=== PATIENT | male | born 1995 | race Caucasian/White ===

== ENCOUNTER 2016-02-27 13:46 | Emergency (ER) | payer BC ==
[~2016-02-27] VITALS: Ht 165.1 cm; Wt 57.7 kg
[~2016-02-27 13:46] MED LIST: FEXO1TAB46 PO
[2016-02-27 13:52] VITALS: BP 122/78; PULSE 71; TEMP 37; O2SAT 98; Ht 165.1 cm; Wt 57.7 kg
--- NOTE | 2016-02-27 14:19 | EMERGENCY ROOM VISIT NOTE ---
ED Visit Note First contact with patient: 13:58 CHIEF COMPLAINT: Right third finger injury HISTORY OF PRESENT ILLNESS: This 21-year-old male presents the ER with chief complaint of right third finger injury. The patient states that he jammed his right third finger last evening. The patient now is complaining of pain and swelling in the finger. The patient states he is able to bend it but it is painful. The patient is right-hand dominant. The patient denies any prior fractures to the right third finger. REVIEW OF SYSTEMS: 6 system review was performed and was negative unless stated otherwise in history of present illness. PMH: The patient is healthy; allergic rhinitis SOCIAL HISTORY: Patient is a [employer] student. The patient denies tobacco use but admits to occasional alcohol use. PHYSICAL EXAM: Vital Signs: Were reviewed Reviewed Nurse's notes. GEN.: 21-year -old male appears in no acute distress. MENTAL Status: Alert and oriented 3. RIGHT THIRD FINGER: There is no deformity of the finger. The patient is unable to extend or flex it well because of the pain. There is ecchymosis and swelling noted over the PIP joint. EMERGENCY DEPARTMENT COURSE: The patient was evaluated. The patient was offered pain medication but declined. X-ray of the right third finger was ordered and interpreted by myself without any evidence of fracture. This will later be interpreted by the radiologist. The patient was placed in a long metal finger splint and discharged home in stable condition DIAGNOSIS: Right third finger contusion DISCHARGE INSTRUCTIONS: Tylenol as needed for pain. Ice intermittently over the next 24 hours. Keep finger in splint except for bathing until pain is tolerable without it. If symptoms persist or worsen, follow-up with [facility]. Problem List Medical Problems: (1) Abscess of right buttock Status: Resolved (2) Acute sinusitis Status: Resolved (3) Bronchitis Status: Resolved (4) Encounter for wound re-check Status: Resolved (5) No significant medical problems Status: Chronic (6) Pilonidal cyst with abscess Status: Resolved (7) Pneumonia Status: Resolved Surgical Problems: (1) No significant past surgical history Status: Chronic Current/Historical Medications No Active Prescriptions or Reported Meds Allergies Coded Allergies: NUTS (Verified Allergy, Severe, ANAPHYLAXIS, 02/27/16) Azithromycin (Verified Allergy, Intermediate, EYE SWELLING, 02/27/16) Ibuprofen (Verified Allergy, Intermediate, HIVES, EYE SWELLING, 02/27/16) NSAIDs (Unverified Allergy, Unknown, HIVES,SWELLING, 02/27/16) Pea (Unverified Allergy, Unknown, UNKNOWN, 02/27/16) Fish Allergy (Verified Adverse Reaction, Intermediate, NAUSEA, 02/27/16) Vital Signs Date Time Temp Pulse Resp B/P Pulse Ox O2 Delivery O2 Flow Rate FiO2 02/27/16 13:52 37.0 71 18 122/78 98 Room Air Departure Information Prescriptions No Active Prescriptions or Reported Meds Referrals No Doctor, Assigned (PCP) Patient Instructions My [facility]
--- NOTE | 2016-02-27 14:20 | DIAGNOSTIC IMAGING REPORT ---
RIGHT THIRD FINGER 3 VIEWS CLINICAL HISTORY: Right third finger injury. FINDINGS: 3 views of the right third finger are obtained. No prior studies are available for comparison at the time of dictation. The skeletal structures are well mineralized. No fracture is seen. The third metacarpophalangeal and interphalangeal joints are well-maintained. Mild soft tissue swelling is present, greatest overlying the proximal interphalangeal joint. IMPRESSION: Soft tissue swelling with no radiographic evidence of fracture in the right third finger. Electronically signed by: Yogi Berg M.D. 02/27/2016 2:19 PM Dictated Date/Time: 02/27/2016 2:18 PM
== END 2016-02-27 14:20 | disposition home or self-care (01) ==
LOC: C.EDB 13:48 → C.EDD 14:20
DX: S60.031A Contusion of right middle finger without damage to nail, initial encounter (principal); W22.8XXA Striking against or struck by other objects, initial encounter; Z87.01 Personal history of pneumonia (recurrent)

== ENCOUNTER 2017-01-08 02:05 | Emergency (ER) | payer BC ==
[~2017-01-08] VITALS: Ht 165.1 cm; Wt 59.5 kg
[2017-01-08 02:09] VITALS: TEMP 36.9; Ht 165.1 cm; Wt 59.5 kg
[2017-01-08] MEDS ORDERED: NORCO 5/325MG HOME PACK PO ONE (03:15)
[2017-01-08 04:08] VITALS: BP 126/84; PULSE 104; O2SAT 97
--- NOTE | 2017-01-08 08:26 | DIAGNOSTIC IMAGING REPORT ---
RIGHT HAND 3 VIEWS CLINICAL HISTORY: Right hand injury. FINDINGS: 3 views of the right hand are obtained. Correlation is made with radiographs of the right third finger dated 02/27/2016. The skeletal structures are well mineralized. There is a comminuted and angulated fracture through the distal shaft of the fifth metacarpal with overlying soft tissue edema. No additional fracture is seen. The joint spaces of the hand are well-maintained. IMPRESSION: Comminuted and angulated fracture through the distal shaft of the fifth metacarpal as above. Electronically signed by: Yogi Berg M.D. 01/08/2017 8:25 AM Dictated Date/Time: 01/08/2017 8:24 AM
--- NOTE | 2017-01-08 22:15 | EMERGENCY ROOM VISIT NOTE ---
ED Visit Note First contact with patient: 02:11 CHIEF COMPLAINT: Hand injury HISTORY OF PRESENT ILLNESS: This 21-year-old male patient presented to the emergency department after they injured the right hand about one hour ago. The patient states that he was with his girlfriend, when he tripped on the sidewalk , and essentially punched into the concrete. The patient rates the pain as dull and 8/10. The patient denies any numbness or tingling. The patient does not have injuries to the wrist. The patient has not had a previous fracture to this hand. REVIEW OF SYSTEMS: A 6 system review of systems was completed with positives and pertinent negatives in the HPI. ALLERGIES: See EMR MEDICATIONS: See EMR PMH: No chronic medical disease SOCIAL HISTORY: Student who lives locally PHYSICAL EXAM: Vital Signs: Reviewed Nurse's notes, vital signs stable. GENERAL : White male, in no acute distress, but appears to be in pain, well-developed, well-nourished. MUSCULOSKELETAL: There is obvious deformity of the right hand at the fifth metacarpal. There is tenderness throughout this distribution. There is no thenar or hypothenar eminence atrophy. Normal thumb opposition to all fingers. Commercial Fishing Vessel Operator strength 1/5. There is no laceration. Capillary refill less than 2 seconds. No tenderness of the fingers or wrist. Full range of motion of the wrist. No snuff box tenderness. Radial pulse 2+. NEURO: Alert and oriented to person, place, and time. Normal sensation to light and sharp touch. RIGHT HAND 3 VIEWS CLINICAL HISTORY: Right hand injury. FINDINGS: 3 views of the right hand are obtained. Correlation is made with radiographs of the right third finger dated 02/27/2016. The skeletal structures are well mineralized. There is a comminuted and angulated fracture through the distal shaft of the fifth metacarpal with overlying soft tissue edema. No additional fracture is seen. The joint spaces of the hand are well-maintained. IMPRESSION: Comminuted and angulated fracture through the distal shaft of the fifth metacarpal as above. EMERGENCY DEPARTMENT COURSE: Physical exam and history were performed. Nursing notes and EMR were reviewed. The patient appears to have injured his hand as above. X-ray was obtained and does show a comminuted and angulated fracture through the fifth metacarpal. This does correlate with this exam. The patient was placed in an Ortho-Glass splint with gentle dorsal angulation. Neurovascular status remained intact. The patient will need to follow with orthopedics when they open first thing Monday morning after the weekend. I did give him options locally, although he may go back home for care. I did get copies of his x-rays for him to take if he has seen out of the area. He will be given a home pack of Vicodin as he is allergic to NSAIDs. The patient may use ice and a sling for comfort. He was otherwise invited back to the ER with any new, worsening, or concerning symptoms. Problem List Medical Problems: (1) Abscess of right buttock Status: Resolved (2) Acute sinusitis Status: Resolved (3) Bronchitis Status: Resolved (4) Encounter for wound re-check Status: Resolved (5) No significant medical problems Status: Chronic (6) Pilonidal cyst with abscess Status: Resolved (7) Pneumonia Status: Resolved Surgical Problems: (1) No significant past surgical history Status: Chronic Current/Historical Medications No Active Prescriptions or Reported Meds Allergies Coded Allergies: NUTS (Verified Allergy, Severe, ANAPHYLAXIS, 01/08/17) Azithromycin (Verified Allergy, Intermediate, EYE SWELLING, 01/08/17) Ibuprofen (Verified Allergy, Intermediate, HIVES, EYE SWELLING, 01/08/17) NSAIDs (Unverified Allergy, Unknown, HIVES,SWELLING, 01/08/17) Pea (Unverified Allergy, Unknown, UNKNOWN, 01/08/17) Fish Allergy (Verified Adverse Reaction, Intermediate, NAUSEA, 01/08/17) Vital Signs Date Time Temp Pulse Resp B/P (MAP) Pulse Ox O2 Delivery O2 Flow Rate FiO2 01/08/17 04:08 104 16 126/84 97 Room Air 01/08/17 02:09 36.9 111 18 116/76 96 Room Air Medications Administered Medications (Trade) Dose Ordered Sig/Eri Route Start Time Stop Time Status Last Admin Dose Admin Acetaminophen/ Hydrocodone Bitart ([place] 5/325mg Home Pack) 1 homepack UD ONCE PO 01/08/17 03:15 01/08/17 03:16 DC 01/08/17 04:06 1 HOMEPACK Departure Information Impression Primary Impression: Closed right hand fracture Dispostion Home / Self-Care Condition GOOD Prescriptions No Active Prescriptions or Reported Meds Referrals Jai Llanes MD Forms HOME CARE DOCUMENTATION FORM, IMPORTANT VISIT INFORMATION Patient Instructions My [facility], ED Compartment Syndrome At Risk For Additional Instructions You were seen and evaluated today on an emergency basis only. This is not a substitute for, or an effort to provide, complete comprehensive medical care. It is not possible to recognize and treat all injuries or illnesses in a single emergency department visit. For this reason it is recommended that you followup with [facility] , Dr. Llanes's office, on Monday for ongoing care and evaluation. Call the office at 8 AM and let them know you were seen in the ER with a broken hand. This will help make her appointment. [place] (hydrocodone/acetaminophen) 5/325 mg (homepack) take one pill every 6 hours as needed for worsening breakthrough pain. Do not drink or drive on [place]. This medication will likely make you tired. Do not take [place] and Tylenol at the same time as both contain acetaminophen. [place] may cause constipation. You may wish to take an [id number] stool softener like Colace if this occurs. Do not get your splint wet. You may wear your arm sling for comfort. You are welcome to return to the emergency department anytime with new, worsening, or concerning symptoms.
== END 2017-01-08 04:07 | disposition home or self-care (01) ==
LOC: C.EDB 02:06
DX: S62.326A Displaced fracture of shaft of fifth metacarpal bone, right hand, initial encounter for closed fracture (principal); W01.0XXA Fall on same level from slipping, tripping and stumbling without subsequent striking against object, initial encounter; Z87.01 Personal history of pneumonia (recurrent); Z87.09 Personal history of other diseases of the respiratory system

== ENCOUNTER → 2017-01-10 | Day surgery (SDC) | payer BC ==
[~2017-01-10] VITALS: Ht 165.1 cm; Wt 63.6 kg
[~2017-01-10] MED LIST changes: +ACETAMINOPHEN/CODEINE 120/12MG 5ML UDP PO PRN; +ATROPINE SULFATE 0.1 MG/ML 5ML SYR IV PRN; +CEFAZOLIN 2000MG IV PUSH 10 ML IV SCH; +DEXAMETHASONE SOD INJ 4 MG/ML VIAL ONE; +EpHEDrine SULFATE INJ 50 MG/ML AMP IV PRN; +FENTANYL CITRATE INJ 50 MCG/1 ML 2 ML VIAL IV PRN; +FENTANYL CITRATE INJ 50 MCG/1 ML 2 ML VIAL ONE; -FEXO1TAB46 PO; +LACTATED RINGER'S 1000ML 1,000 ML IV SCH; +LIDOCAINE HCL 2% 2 ML VIAL (20MG/ML) ONE; +MIDAZOLAM HCL 1 MG/ML 2ML VIAL ONE; +ONDANSETRON INJ 2 MG/ML 2 ML VIAL IV PRN; +ONDANSETRON INJ 2 MG/ML 2 ML VIAL ONE; +OXYCODONE/ACETAMINOPHEN 5-325 TAB PO PRN; +PROPOFOL IV EMULSION 10 MG/ML 20 ML VIAL IV ONE; +ROPIVACAINE 0.5% 5 MG/ML 30 ML VIAL ONE; +SODIUM CHLORIDE 0.9% 1000ML 1,000 ML IV SCH
[2017-01-10 11:02] VITALS: Ht 165.1 cm; Wt 63.6 kg
--- NOTE | 2017-01-10 13:09 | [facility] Post Operative Brief Note ---
Immediate Operative Summary Operative Date Jan 10, 2017. Pre-Operative Diagnosis Right 5th Metacarpal Fracture Post-Operative Diagnosis Same Procedure(s) Performed Closed Reduction, Percutaneous Pinning Right 5th Metacarpal Fracture Surgeon Dr. Mendoza Account Management Specialist Surgeon(s) Johny Hughes PA-C Estimated Blood Loss 0 mL Findings Fracture reduced and stabilized with two 0.062 inch K-wires Fluids (cc crystalloids) 750 cc Specimens None Drains None Anesthesia General with block Complication(s) None Disposition Recovery Room / PACU
--- NOTE | 2017-01-10 13:14 | [facility] Operative Report ---
Operative Report Operative Date Jan 10, 2017. Pre-Operative Diagnosis Right 5th Metacarpal Fracture Post-Operative Diagnosis Same Procedure(s) Performed Closed Reduction, Percutaneous Pinning Right 5th Metacarpal Fracture Surgeon Dr. Mendoza Computer Systems Software Architect Surgeon(s) Johny Hughes PA-C Estimated Blood Loss 0 mL Findings none Fluids (cc crystalloids) 750 cc Specimens None Complication(s) None Disposition Recovery Room / PACU I attest to the content of the Intraoperative Record and any orders documented therein. Any exceptions are noted below.
--- NOTE | 2017-01-10 13:18 | Discharge Instructions ---
Discharge Instructions Date of Service Jan 10, 2017. Admission Reason for Admission: Right 5TH Metacarpal Fx Discharge Discharge Diagnosis / Problem: Right 5th metacarpal fracture Discharge Goals Goal(s): Decrease discomfort, Improve function, Increase independence Activity Recommendations Activity Limitations: as noted below Lifting Limitations: until after follow-up appointment Exercise/Sports Limitations: until after follow-up appointment May Resume Sexual Activity: when tolerated Shower/Bathe: tomorrow, keep incision dry Driving or Machine Use: No until cleared by orthopedic surgeon Weightbearing Status: Right non-weightbearing (Upper extremity) . Instructions / Follow-Up Instructions / Follow-Up Post-operative Instructions Dear Patient and Family/Friends, Before you are discharged from the hospital, it is important to know what to expect when you get home after surgery. To that end, we have created this sheet of discharge instructions which covers many commonly asked questions. Make sure you go through this sheet in its entirety with your nurse before you are discharged. Please note that we will go over the specifics of your surgery and recovery when you return for your first post-operative visit. Sincerely, Dr. Mendoza Pain Expect to be in a fair amount of pain after surgery. Remember, our goal is not to eliminate your pain, but to make it tolerable. It is a good idea to stay ahead of your pain by taking the medications you were prescribed once you get home. Typically, the pain starts improving 3-7 days after surgery. You should start weaning off the narcotic pain medication (oxycodone, hydrocodone, hydromorphone, morphine) as soon as your pain improves. Please call our office if your pain is not adequately controlled. Ice Ice your operative site at least 5 times a day for 15-30 minutes at a time. Make sure you have a thin cloth between the ice or cooling unit and your skin to prevent santana bite. This is especially important if you received a nerve block. Continue icing your operative site for the first 5-7 days after surgery , then as needed. Diet/Nausea/Vomiting Start by drinking clear liquids and eating crackers. If you can tolerate this, then you may resume your normal diet. If you feel nauseated or vomit, take Zofran/ondansetron (if prescribed). Please call our office if you have intractable nausea or vomiting, or, if after hours, you may go to the Emergency Room for help. Constipation Constipation is a common side effect of narcotic pain medication. If you have not had a bowel movement within 2 days after surgery, we recommend purchasing an over the counter laxative such as Milk of Magnesia, Dulcolax, or Miralax from a local pharmacy, and taking it as instructed. Call our clinic if any questions. Slings and Braces If you were placed in a sling or brace, it must be worn at all times, including sleep. You may remove your sling or brace for physical therapy, home exercises , and showering. The length of time you will be in your brace and range of motion restrictions depends on what surgery you had; these details will be reviewed at your first post-operative appointment. Nerve block The anesthesia team sometimes places a nerve block to help with post-operative pain control. This results in significant numbness and inability to move the extremity. The nerve block usually wears off in 8-12 hours, but sometimes can last up to 24 hours. Please call our office if you are still unable to move your extremity after 24 hours, unless you received a pain pump to take home. Nerve blocks typically wear off quickly, so start taking pain medication as soon as you start feeling soreness near your surgical site. Weight bearing and Range of Motion. Do not bear any weight through your operative extremity immediately after surgery. If you had upper extremity surgery, do not lift anything with that arm. If you are in a knee brace, keep it locked in place until your follow-up. We will discuss your weight bearing, range of motion, and lifting restrictions in detail at your first post-operative appointment. Continuous Passive Motion (CPM) Machine If you were prescribed a CPM machine, it will start after your first post- operative appointment, at which time we will give you instructions on the range of motion settings and duration of treatment Physical therapy You will be given a prescription for physical therapy or occupational therapy at your first post-operative appointment. Typically, patients start therapy within 1 week of surgery Wound care and showering We will inspect your wound at your first post-operative visit, and may do a dressing change at that time. Most patients will be in a water-proof dressing that is removed 14 days after surgery. It is normal to see some dried blood on the dressing. Do not remove your dressing, paper strips or sutures yourself unless you are given permission. Showering is allowed the day after surgery. Do not scrub or remove any dressings. The wound should not be submerged underwater (i.e. in a bathtub or pool) until 4 weeks after surgery JUDSON stockings If you were given white stockings, these are to be worn at all times except to shower (on both legs) for the first 2 weeks after surgery. Driving You may not drive while taking narcotic pain medication or while in a cast, splint, sling or brace. You, the patient, need to make the final determination about when you are safe to drive, however, the earliest you may consider driving after surgery is below: Hand/Wrist/Elbow Surgery: 3 days Shoulder Surgery: 2 weeks Hip,/Knee/Ankle Surgery: 4 weeks Fracture repair: 6 weeks Return to Work Your return to work depends on what surgery was done and what type of work you do. Please bring any paperwork your employer needs completed to your first post -operative visit. Also, bring a description of your job duties, as this helps us to understand what risks you may face at work. Travel Avoid long distance travel (greater than 1 hour) in airplanes and cars for the first 6 weeks after surgery. If you must travel, you need to have a Doppler ultrasound done before you travel to rule out a blood clot in your legs. Follow-up You should have a follow-up appointment already scheduled 1-2 days after surgery. If not, please contact our office to make this appointment before you leave the hospital. When to call the office It is normal to have swelling and bruising in the limb that was operated on. This will improve with time. It is also normal to have fevers for the first 2 days after surgery. Reasons you should call your doctor include: Uncontrolled pain; Nausea, vomiting, or constipation that does not improve with medication; Fevers over 101.5, chills, sweats; Drainage or bleeding from the wound; Foul odor; Spreading areas of redness; Any other concerns Current Hospital Diet Patient's current hospital diet: Discharge Diet Recommended Diet: Regular Diet Procedures Procedures Performed: Closed Reduction, Percutaneous Pinning Right 5th Metacarpal Fracture Pending Studies Studies pending at discharge: no Medical Emergencies . Who to Call and When: Medical Emergencies: If at any time you feel your situation is an emergency, please call 911 immediately. . Non-Emergent Contact Non-Emergency issues call your: Primary Care Provider Call Non-Emergent contact if: you have a fever, temperature is above 101.5, your pain is not controlled, wound has increased drainage, you have any medication questions . "Provider Documentation" section prepared by Calin Hughes. . VTE Core Measure Inpt VTE Proph given/why not?: Other Anticoagulation (Aspirin EC 81 mg), T.E.D. Stockings [place] Drug Monitoring Program Search Results: patient reviewed within database, no issues identified, see additional documentation
--- NOTE | 2017-01-10 13:38 | OPERATIVE REPORT ---
DATE OF OPERATION: 01/10/2017 PREOPERATIVE DIAGNOSIS: Displaced closed right fifth metacarpal fracture. POSTOPERATIVE DIAGNOSIS: Same. PROCEDURE: Closed reduction percutaneous pinning, right fifth metacarpal fracture. SURGEON: Hank Mendoza. BOWLING ALLEY MANAGER: HAI Auguste. IMPLANTS: Two 0.062 inch K wires. SPECIMENS: None. COMPLICATIONS: None. IV FLUIDS: 750 mL. ESTIMATED BLOOD LOSS: Minimal. 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 He had approximately 55 degrees of angulation with a rotational deformity. I had a long discussion with him about treatment options including a nonsurgical treatment with casting versus surgical management. Due to his rotational deformity, I recommended surgery. After reviewing all the risks and benefits of surgery and alternatives, he elected to proceed with surgery. All questions were answered. Informed consent was signed. OPERATIVE FINDINGS: Fracture was closed-reduced and stabilized with two percutaneous 0.062 inch K-wires DESCRIPTION OF PROCEDURE: The patient was identified in the preoperative holding area where his surgical site was marked. He was given a supraclavicular block by anesthesia. He was brought back to the operating room and placed on the operating room table and we tested his block. He was still feeling pain and so a general anesthetic was performed. Once he was asleep, all bony prominences were padded. Perioperative antibiotics were administered. He was prepped and draped in normal sterile fashion. Prior to incision, a multidisciplinary timeout was called. All in the room were in agreement. We began by bringing in the C-arm. We localized our optimal start point on both AP and lateral views and marked this with a marker. We then placed A 0.062 inch K wire through the skin and onto the metacarpal head. The tip of the K-wire was again optimized on fluoroscopic views and then driven through the distal fracture fragment to the level of the fracture. Then, using this K-wire as a joystick as well as with manual traction and manipulation of the fragment, we were able to obtain an anatomic reduction. The K-wire was then driven across the fracture site into the proximal fragment, secured the tip of the wire against the distal dorsal and proximal cortex without penetrating it. We then inspected his finger rotation. Once this was optimized, his fingertips were all pointing toward the scaphoid tubercle. We then placed a single transverse 0.062 inch K-wire through both cortices of the distal fifth metacarpal fragment and into the fourth metacarpal obtaining a unicortical fixation in the fourth metacarpal for rotational control. Our final fluoroscopic images were then obtained. The pins were bent back at the skin and Jurgan balls were placed for protection. Pin sites were dressed with Xeroform. The abrasions he had over his PIP joints were covered with Xeroform as well. Of note, these abrasions were at least a centimeter away from his pin entry site into the metacarpal head and were clean. The wrist, fingers and forearm were immobilized in a volar dorsal plaster splint with the MCPs held in the intrinsic plus position with ample padding over the pins. The patient was then awoken from anesthesia and transferred to recovery room in stable condition. POSTOPERATIVE COURSE: The patient will be discharged home from the recovery room. He will follow up in my clinic next Monday for the splint removal and inspection of his pin sites. We will plan on transitioning him to a short arm cast at that point to include the pinky and ring fingers, leaving the PIP and DIP joints free with the MCPs held at 70 degrees of flexion and the wrist at 10 degrees of extension. We will plan on 3-4 weeks with the pins in place. No DVT prophylaxis is indicated for the small upper extremity surgery in a patient without risk factors. I attest to the content of the Intraoperative Record and any orders documented therein. Any exceptions are noted below. GERI
--- NOTE | 2017-01-10 14:09 | Anesthesiology Progress Note ---
Anesthesia Post Op Note Date & Time Jan 10, 2017 at 14:09 Vital Signs Pain Intensity: 3 Vital Signs Past 12 Hours Date Time Temp Pulse Resp B/P (MAP) Pulse Ox O2 Delivery O2 Flow Rate FiO2 01/10/17 13:50 112/63 01/10/17 13:49 54 10 98 01/10/17 13:49 55 10 01/10/17 13:48 65 16 98 01/10/17 13:48 65 16 01/10/17 13:46 36.6 61 14 110/66 96 Room Air 01/10/17 13:46 110/66 01/10/17 13:43 60 9 01/10/17 13:43 61 9 98 01/10/17 13:40 112/72 01/10/17 13:38 63 20 100 01/10/17 13:38 62 20 01/10/17 13:37 58 14 100 01/10/17 13:37 57 14 01/10/17 13:36 61 16 01/10/17 13:36 59 16 100 01/10/17 13:35 121/71 01/10/17 13:32 80 13 100 01/10/17 13:32 76 13 01/10/17 13:30 109/71 01/10/17 13:27 60 11 01/10/17 13:27 60 11 100 01/10/17 13:26 63 14 01/10/17 13:26 60 14 111/59 100 01/10/17 13:21 55 16 01/10/17 13:21 54 16 108/43 100 01/10/17 13:16 54 18 99 01/10/17 13:16 53 18 01/10/17 13:15 113/67 01/10/17 13:14 36.8 67 16 124/59 99 Mask 8 01/10/17 13:14 121/59 01/10/17 12:16 61 14 98 01/10/17 12:16 70 01/10/17 12:15 128/73 01/10/17 12:12 67 7 99 01/10/17 12:12 66 01/10/17 12:10 115/81 01/10/17 12:07 65 0 98 01/10/17 12:07 67 01/10/17 12:06 114/65 01/10/17 12:05 144/69 01/10/17 12:02 81 01/10/17 12:02 83 16 99 01/10/17 11:57 70 01/10/17 11:57 73 0 97 01/10/17 11:52 0 01/10/17 11:07 36.6 70 16 100/66 (77) 96 Room Air Notes Mental Status: alert / awake / arousable, participated in evaluation Pt Amnestic to Procedure: Yes Nausea / Vomiting: adequately controlled Pain: improving with treatment Airway Patency, RR, SpO2: stable & adequate BP & HR: stable & adequate Hydration State: stable & adequate Anesthetic Complications: no major complications apparent
[2017-01-10 14:10] VITALS: TEMP 36.4
[2017-01-10 14:36] VITALS: BP 127/70; PULSE 64; O2SAT 99
== END | disposition home or self-care (01) ==
LOC: X.SURG 10:33
PROVIDERS: ATTEND Orthopaedic Surgery
DX: S62.326A Displaced fracture of shaft of fifth metacarpal bone, right hand, initial encounter for closed fracture (principal); W22.09XA Striking against other stationary object, initial encounter

== ENCOUNTER → 2017-01-17 | Outpatient (CLI) | payer BC ==
--- NOTE | 2017-01-17 15:52 | DIAGNOSTIC IMAGING REPORT ---
R HAND MIN 3 VIEWS HISTORY: 22 years-old Male S/P ORIF RIGHT 5TH METACARPAL status post ORIF of right fifth metacarpal fracture COMPARISON: Spot fluoroscopic images of the right hand 01/10/2017, radiographs 01/08/2017 TECHNIQUE: 3 views of the right hand FINDINGS: There are 2 K wires present within the fifth metacarpal fixating the previously noted displaced and angulated distal metaphyseal fracture. One K wire is present along the long axis of the metacarpal and the second is oriented perpendicular with distal tip appearing to be within the distal fourth metacarpal neck. There is satisfactory alignment. IMPRESSION: Status post ORIF of the left fifth metacarpal fracture with improved alignment. The above report was generated using voice recognition software. It may contain grammatical, syntax or spelling errors. Electronically signed by: Raz Gamble M.D. 01/17/2017 3:50 PM Dictated Date/Time: 01/17/2017 3:47 PM
== END | disposition home or self-care (01) ==
LOC: C.RDSM 11:42
PROVIDERS: ATTEND Physician Assistant
DX: S62.326D Displaced fracture of shaft of fifth metacarpal bone, right hand, subsequent encounter for fracture with routine healing (principal); X58.XXXD Exposure to other specified factors, subsequent encounter; Z96.7 Presence of other bone and tendon implants

== ENCOUNTER → 2017-02-15 | Outpatient (CLI) | payer BC | END | disposition home or self-care (01) | LOC: C.RDSM 10:30 | PROVIDERS: ATTEND Orthopaedic Surgery | DX: S62.91XA Unspecified fracture of right hand, initial encounter for closed fracture (principal); X58.XXXA Exposure to other specified factors, initial encounter ==